=== PATIENT | male | born 1955 | race Caucasian/White ===

== ENCOUNTER 2019-04-18 22:12 | Emergency (ER) | payer BC ==
[~2019-04-18] VITALS: Ht 188 cm; Wt 100.7 kg
[2019-04-18 22:20] VITALS: Ht 188 cm; Wt 100.7 kg
[2019-04-18 23:32] LABS: CALCIUM 8.9 mg/dL (8.5-10.1); CARBON DIOXIDE 24.6 mmol/L (21-32); CREATININE SERUM 1.4 mg/dL (0.7-1.3); POTASSIUM SERUM 3.9 mmol/L (3.5-5.1)
[2019-04-18 23:34] LABS: BASOPHIL % 0.5 % (0-2); PLATELET COUNT 162 x10^3mcL (130-400); RED CELL DISTRIBUTION WIDTH 13.3 % (11.5-14.5)
[2019-04-18 23:37] LABS: ALBUMIN 3.3 g/dL (3.4-5.0); BILIRUBIN TOTAL 1.11 mg/dL (0.20-1.00)
[2019-04-18 23:41] LABS: microscopic required? YES; urine erythrocyte NEGATIVE (NEGATIVE)
[2019-04-19] MEDS ORDERED: IMITREX50 MG PO (00:57)
[2019-04-19 06:06] VITALS: BP 106/54
== END 2019-04-19 06:06 | disposition short-term general hospital (02) ==
LOC: ED 22:12
PROVIDERS: Emergency Medicine
DX: I71.01 Dissection of thoracic aorta (principal)
CPT/HCPCS: 36415; J7030; Q0092